=== PATIENT | male | born 1950 | race Caucasian/White ===

== ENCOUNTER 2018-02-19 12:22 | Outpatient (CLI) | payer MEDICARE, OTHER ==
--- NOTE | 2018-02-19 19:03 | MRI ---
BRAIN MRI WITH AND WITHOUT CONTRAST 02/19/17 Reference made to 11/28/10 MRI. CLINICAL HISTORY: Brain tumor, followup. FINDINGS: There is cavitary, postoperative encephalomalacia of the right frontal lobe. Since the prior exam the re has been interval development of prominent vasogenic edema of the left frontal lobe where there is underlying restricted diffusion which is related to an irregular shaped, partially enhancing left fr ontal lobe mass which does involve the adjacent corpus callosum and does traverse midline via the ant erior corpus callosum. Axial dimension of the solid component of the tumor measures 3.5 cm transverse x 3.1 cm AP. Craniocaudal extension of the necrotic and solid enhancing component measures 4.4 cm. T here is subtle thin curvilinear susceptibility seen about the periphery of the mass indicating a min imal component of hemosiderin staining. The periphery of the mass demonstrates a spiculated enhancin g pattern which does indicate extension of malignancy beyond the visualized confines of the enhancing portion of the mass. There is an additional separate focus of subtle enhancement within the body of the corpus callosum compatible with the spread of tumor. This is located at and to the left of midlin e. This spans an AP dimension of approximately 1.4 cm. Evidence of prior right frontoparietal craniot jak. There is abnormal opacification of the left frontal ethmoidal sinus and left maxillary sinus. Mi ld circumferential fluid signal of the sphenoid sinus is present. IMPRESSION: 1. Interval development of malignancy of the left frontal lobe which does involve the anterior c orpus callosum traversing midline. There is a separate focus of enhancement indicative of malignancy involving the body of the corpus callosum. 2. Mild hemosiderin staining within the periphery of the left frontal malignancy. 3. Postoperative cavitary encephalomalacia of the right frontal lobe. POS: SUN
== END 2018-02-19 12:23 | disposition home or self-care (01) ==
LOC: MRI 12:22
PROVIDERS: ATTEND Neurological Surgery
DX: C71.9 Malignant neoplasm of brain, unspecified (principal); Z98.890 Other specified postprocedural states; G93.89 Other specified disorders of brain
CPT/HCPCS: 70553; 82565

== ENCOUNTER 2018-03-01 07:34 | Inpatient (IN) | payer MEDICARE, OTHER ==
--- NOTE | 2018-03-01 04:23 | HP ---
CHIEF COMPLAINT: Brain tumor. HISTORY OF PRESENT ILLNESS: Mr. Ramirez is now 7 years out from resection of right frontal lobe GBM. 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 At first, there was a good response. Because of worsening on imaging from 11/2016 to 01/2017, he was taken off Avastin. He has been on this for 5 weeks and scan is planned for March to assess progress. Following this encounter, Mr. Ramirez is back in the office. He had had repeated scans and planned biopsy of tumor, noticed that the tumor was much larger than it was in January. We discussed surgery. The patient has been less active over time and less communicative according to his , otherwise he is a same person, has no motor or sensory issues. REVIEW OF SYSTEMS: A 10-point review of systems has been conducted and is otherwise negative than stated above in the HPI. PAST MEDICAL HISTORY: History of previous GMB, cardiovascular disease, atrial fibrillation. PAST SURGICAL HISTORY: Craniotomy in [address] Dunham, appendectomy, pacemaker insertion, heart ablation for atrial fibrillation. FAMILY HISTORY: The patient denies any drug or alcohol use. SOCIAL HISTORY: He is . ALLERGIES: The patient has no known drug allergies. PHYSICAL EXAMINATION: CONSTITUTIONAL: The patient is sitting comfortably in the office. He is alert and oriented. HEENT: Eyes are equal, round, reactive to light. Extraocular movements are intact. Hearing is intact. Moist mucous membranes. CARDIOVASCULAR: Regular rate and rhythm. PULMONARY: Regular work of breathing in room air. NEUROLOGIC: Cranial nerves are intact. Cerebellar exam: There is no truncal ataxia. Gait and station are normal. Motor exam: There is no drift. Sensory exam: There is no neglect. IMAGING: MRI, enhancing area is 4-5 times larger, at least then it was 5 weeks ago. There is a very concerning left frontal lobe is involved in the right side of original tumor site. ASSESSMENT: Malignant neoplasm of the frontal lobe. PLAN: Dr. Dunham has offered surgical resection this almost certainly tumor given the mass effect and a huge increase in size. We have discussed the indications, risks, benefits, alternatives, and expected results and surgery. The risks discussed included, but were not limited to bleeding, infection, brain damage, language dysfunction, cognitive decline, seizure, stroke, personality changes, paralysis, wheelchair or ventilator dependent, and cardiopulmonary complications of anesthesia including . The patient states he has understanding and is willing to move forward with surgery. CANDI
[2018-03-01] MEDS ORDERED: Dexamethasone 4 mg/ml Vial ONE ×2 (08:27→20:13)
[2018-03-01] MEDS ORDERED: CEFAZOLIN/Water 2 GM/20 ML SYRINGE ONE ×2 (08:27→19:48)
[2018-03-01 08:32] LABS: #Basophils 0.1 thou/uL (0.0-0.2); #Eosinphils 0.2 thou/uL (0.0-0.7); #Monocytes 0.9 thou/uL (0.11-0.59); #Neutrophils 5.1 thou/uL (1.40-6.50); %Basophils 0.9 % (0.0-1.0); %Lymphocytes 24.6 % (21.0-51.0); %Neutrophils 61.4 % (42.0-75.0); Hemoglobin 15.2 g/dL (14.0-18.0); Mean Corpuscular HGB CONC 34.8 g/dL (32.0-36.0); Mean Corpuscular Hemoglobin 32.9 pg (27.0-31.0); Mean Corpuscular Volume 94.6 fL (78.0-98.0); Platelet Count 228 thou/uL (130-400); RBC Distribution Width 14.1 % (11.5-14.5); Red Blood Cell (RBC) Count 4.63 mill/uL (4.70-6.10); White Blood Cell (WBC) Count 8.3 thou/uL (4.8-10.8)
[2018-03-01 08:39] LABS: INR-International Normal Ratio 1.1; PTT 23.8 SEC (22.9-36.1); Prothrombin Time 13.9 SEC (12.0-14.7)
[2018-03-01] MEDS ORDERED: Sodium Chloride 0.9% 20 ML ONE (09:31)
[2018-03-01] MEDS ORDERED: Lidocaine 0.5%/Epinephrine 1:200,000 50 ml Vial ONE (09:31)
[2018-03-01] MEDS ORDERED: Bacitracin Zinc Ointment 30 gm TUBE ONE (09:31)
[2018-03-01] MEDS ORDERED: Thrombin 5000 UNITS/5 ML VIAL ONE (09:31)
[2018-03-01] MEDS ORDERED: Fentanyl 100 MCG/2 ML VIAL ONE (10:13)
[2018-03-01] MEDS ORDERED: Ondansetron HCl/PF 4 MG/2 ML Vial IVP PRN ×2 (11:57→16:30)
[2018-03-01] MEDS ORDERED: niCARdipine 40MG In NaCl 40 MG/200 ML BAG IVPB SCH (12:00)
[2018-03-01] MEDS ORDERED: Rocuronium Bromide 50 MG/5 ML VIAL ONE (12:07)
[2018-03-01] MEDS ORDERED: niCARdipine HCl 50 MG in Sodium Chloride 0.9% 250 ML 230 ML IVPB SCH (12:15)
[2018-03-01] MEDS ORDERED: Ondansetron HCl/PF 4 MG/2 ML Vial ONE ×3 (14:32→18:57)
[2018-03-01] MEDS ORDERED: Esmolol 100 MG/10 ML VIAL ONE (14:55)
[2018-03-01] MEDS ORDERED: Glycopyrrolate 0.2 MG/ML 5 ML SYRINGE ONE (14:55)
[2018-03-01] MEDS ORDERED: Lidocaine 1% PF 5 ML VIAL ONE ×2 (14:55)
[2018-03-01] MEDS ORDERED: PROPOFOL 200 MG/20 ML VIAL ONE (14:55)
[2018-03-01] MEDS ORDERED: Labetalol 100 MG/20 ML MDV ONE (14:55)
[2018-03-01] MEDS ORDERED: PHENYLEPHRINE-NS 100 MCG/ML 10 ML SYRINGE ONE (14:55)
[2018-03-01] MEDS ORDERED: Cepastat Lozenges 1 LOZ PO PRN (15:49)
[2018-03-01] MEDS ORDERED: Mag-Al 1200 mg/1200 mg/30 ML UDCUP PO PRN (15:49)
[2018-03-01] MEDS ORDERED: Labetalol HCl 100 MG/20 ML VIAL SLOW IVP PRN (15:49)
[2018-03-01] MEDS ORDERED: Zolpidem Tartrate 5 MG TAB PO PRN (15:49)
[2018-03-01] MEDS ORDERED: Docusate 100 MG CAP PO PRN (15:49)
[2018-03-01] MEDS ORDERED: Fleet Enema 133 ML BOT PR PRN (15:49)
[2018-03-01] MEDS ORDERED: diphenhydrAMINE 50 MG CAP PO PRN (15:49)
[2018-03-01] MEDS ORDERED: HYDROcodone/Acetaminophen 7.5/325 mg Tablet PO PRN (15:49)
--- NOTE | 2018-03-01 15:53 | OP ---
DATE OF PROCEDURE: 03/01/2018 NEUROSURGERY OPERATIVE NOTE SURGEON: Tremaine Dunham M.D. TANK BUILDER AND ERECTOR: BALAJI Stevens. PREOPERATIVE INDICATION: Prevent neurological deterioration. PREOPERATIVE DIAGNOSIS: Recurrent glioblastoma multiforme, left frontal lobe. POSTOPERATIVE DIAGNOSIS: Recurrent glioblastoma multiforme, left frontal lobe. OPERATIVE PROCEDURE: Brainlab stereotactic-assisted left frontal craniotomy with tumor resection, op erating microscope. PREOPERATIVE MEDICATIONS: Ancef 2 g IV, Keppra 1000 mg IV. DRAIN NUMBER: Zero. DRAIN TYPE: None. PROCEDURE IN DETAIL: The patient was brought to the operating room. General endotracheal anesthesia was induced. The patient was positioned supine on the operating table and the head was turned sligh tly to the right. The head was immobilized with a [place] devon and the [place] attachment for e operating table. Using surface registration techniques, [employer] stereotactic software and preoper ative imaging, we registered the patient for sterotactic navigation. We validated our registration w ith surface landmarks and found the accuracy to be quite good. We marked out the patient's previous bifrontal incision and under the incision infused local anesthetic. The scalp was sterilely prepped and draped. We opened the left two-thirds of the previous incision and controlled bleeding with bipo lar and monopolar cautery. We folded the scalp flap forward and held it in place under fishhooks. U sing Brainlab navigation wand, we identified the surface presentation of the nearest point to the jose alejandro or. We planned a left frontal craniotomy. We placed a shannon hole at the frontal aguayo, [address] to the superior temporal line just beneath the temporalis muscle and another towards the midline of the frontal bone. We fashioned a rectangular shaped craniotomy and removed the bone flap out of the field after coaxing the dura from the undersurface of the bone with a [place] 3 dissector. The dura was intact with the craniotomy. We opened the dura in a cruciate fashion and brought the [employer] n avigation wand into the field. We chose an entry point in the far left frontal lobe, which would giv e us a direct access to the tumor through the least amount of normal adjacent brain tissue. We opene d the gyrus and went through and encountered tumor about 1 cm to 15 mm below the cortical surface. Lenora tyler operative microscope was brought into the field. Under microscopic magnification and using microsurgical techniques, we carefully developed a plane ar ound the tumor. First, we debulked the center and then we went superficially and found a gliotic citlali ne around the tumor as well as the vascular edges. We created this plane circumferentially anteriorl y, medially, laterally, posteriorly and finally on its inferior surface. The deep surface was intima tely associated with the ependyma of the frontal horn of the lateral ventricle. In multiple areas, w e left the ependymoma intact and in some areas it was opened. Over any opening in the ventricle, we left Gelfoam until resection was complete. At the completion of our resection, there is no further v ascular tissue suggestive of tumor. Our navigation wand suggested a volumetric resection. We laid a large piece of Surgicel over the ependyma. Hemostasis was excellent. We closed the dura in an inte rrupted fashion. We reapproximated the skull with titanium plates and screws. The scalp was closed in a vertical mattress fashion with a 2-0 nylon. The patient was removed from the [facility] and a sterile dressing was applied. This was a clean case and no contamination.
[2018-03-01] MEDS ORDERED: CEFAZOLIN/Water 2 GM/20 ML SYRINGE SLOW IVP SCH ×2 (16:00→17:00)
[2018-03-01] MEDS ORDERED: Morphine Sulfate 2 MG/ML SYRINGE SLOW IVP PRN (16:30)
[2018-03-01] MEDS ORDERED: Promethazine HCl 25 MG/ML VIAL SLOW IVP PRN (16:30)
[2018-03-01] MEDS ORDERED: HYDROmorphone 2 MG/ML VIAL SLOW IVP PRN (16:30)
[2018-03-01] MEDS ORDERED: Promethazine HCl 25 MG/ML VIAL IM PRN (16:30)
[2018-03-01] MEDS: CEFAZOLIN/Water 2 GM/20 ML SYRINGE SLOW IVP SCH (20:09)
[2018-03-01] MEDS: Dexamethasone 4 MG TAB PO SCH (20:22)
[2018-03-01] MEDS ORDERED: levETIRAcetam 500 MG TAB PO SCH (21:00)
[2018-03-01] MEDS: Sodium Chloride 0.9% 1,000 ML IV SCH (22:15)
[2018-03-01] MEDS: clonazePAM 0.5 MG TAB PO SCH (22:18)
[2018-03-01] MEDS: Ondansetron HCl/PF 4 MG/2 ML Vial IVP PRN (22:34)
--- NOTE | 2018-03-01 22:37 | EKG ---
Test Reason : PREOP Blood Pressure : / mmHG Vent. Rate : 066 BPM Atrial Rate : 066 BPM P-R Int : 162 ms QRS Dur : 092 ms QT Int : 302 ms P-R-T Axes : 010 -04 005 degrees QTc Int : 316 ms Sinus rhythm with Premature supraventricular complexes Low voltage QRS Nonspecific T wave abnormality Abnormal ECG No previous ECGs available Confirmed by Rosalina RANDALL ([id number]) on 03/01/2018 10:36:36 PM Referred By: MARILIN Confirmed By:Rosalina RANDALL
[2018-03-01] MEDS ORDERED: Promethazine HCl 12.5 MG in Sodium Chloride 0.9% 50 ML IVPB PRN (23:01)
[2018-03-01 23:09] VITALS: BMI 33.5
[2018-03-02] MEDS: Dexamethasone 4 MG TAB PO SCH ×4 (00:12→17:46)
[2018-03-02] MEDS: CEFAZOLIN/Water 2 GM/20 ML SYRINGE SLOW IVP SCH ×3 (03:57→20:56)
[2018-03-02] MEDS: Sodium Chloride 0.9% 1,000 ML IV SCH ×2 (05:00→20:08)
[2018-03-02] MEDS ORDERED: Lidocaine 1% (PF) 30 ML VIAL ONE (06:35)
[2018-03-02] MEDS: HYDROcodone/Acetaminophen 7.5/325 mg Tablet PO PRN (06:38)
[2018-03-02] MEDS: Ondansetron HCl/PF 4 MG/2 ML Vial IVP PRN (06:39)
--- NOTE | 2018-03-02 07:11 | PRG ---
DATE OF SERVICE: 03/02/2018 I saw Mr. Ramirez on rounds this morning in our ICU. No events reported overnight other than slow e mergence from anesthesia. Eventually he became more responsive, and answering questions and he remai ns that way now. I do not see a fever recorded overnight. Blood pressures have been in the 120s to 130s. This morning, Mr. Ramirez opens his eyes as I entered the room, he answers questions with one or two word answers. He is moving all 4 extremities well. He follows commands quite easily. He in teracts and he is aware of the events and his surroundings. His affect is slightly flatter than it u sually is. He says he is happy to be through surgery. I see some drainage on the bed that looks like a combination of irrigation/CSF and serosanguineous dr pretty. We reinforced the dressing, try to get this to stop. He may require a few more stitches to be placed or some running Prolene in between his vertical mattress sutures. If that is necessary, we can add that in the coming days. We told Mr. Ramirez this morning that the pathologist looked at his tissue samples quickly under the microscope and indicated that there were tumor cells and that this was not all radiation reaction. He realizes that recurrent glioblastoma is indicative of a poor prognosis, but he is keeping his spir its up and hopes that adjuvant therapy in combination with the surgery can give him some more time.
[2018-03-02] MEDS ORDERED: Lidocaine 1% (PF) 30 ML VIAL NERVE BLCK SCH (07:45)
[2018-03-02] MEDS ORDERED: Prevnar 13-Val Conj/PF 0.5 ML SYRINGE IM ONE (09:00)
[2018-03-02] MEDS ORDERED: LISDEXAMFETAMINE DIMESYLATE PO SCH (09:00)
--- NOTE | 2018-03-02 09:51 | CON ---
DATE OF CONSULTATION: 03/02/2018 This is 70 minutes of time, of that time greater than 50% was spent with the patient and/or on the [facility] unit in the hospital. CONSULTING PHYSICIAN: Dr. Dunham REASON FOR CONSULTATION: CCU management. HISTORY OF PRESENT ILLNESS: The patient is confused and he is unable to give accurate history. Ther efore, what I have is obtained is from speaking with nursing staff and from reviewing notes on the art. He is a 67-year-old male who underwent craniotomy yesterday for resection of a recurrent gliobl astoma in the frontal lobe. He was brought to the CCU afterwards for intense neuro monitoring. So f ar, he has done well, but is very confused. PAST MEDICAL HISTORY: 1. Previous glioblastoma 7 years ago. 2. Coronary artery disease. 3. Atrial fibrillation. PAST SURGICAL HISTORY: 1. Craniotomy 2010 2. Appendectomy. 3. Pacemaker placement. 4. Cardiac ablation for atrial fibrillation. SOCIAL HISTORY: He is , does not smoke, does not drink. ALLERGIES: None. FAMILY MEDICAL HISTORY: Unremarkable. MEDICATIONS PRIOR TO ADMISSION: 1. Clonazepam 1 mg nightly. 2. Turmeric 500 mg daily. 3. Vyvanse 100 mg daily. 4. Cardizem-CD 1 daily. 5. Vitamin B12 1000 mcg daily. REVIEW OF SYSTEMS: Unobtainable secondary to the patient's altered mental status. PHYSICAL EXAMINATION: VITAL SIGNS: Temperature 98.8, pulse 78, blood pressure 112/64, sat 95%. Intake for 24 hours 680, o utput 1080. HEENT: Unremarkable. NECK: Without adenopathy or JVD. LUNGS: Clear without wheezing or rhonchi. CARDIOVASCULAR: S1, S2 regular. ABDOMEN: Soft, nontender. EXTREMITIES: No clubbing, cyanosis, or edema. NEURO: No focal neuro deficits other than his disorientation. LABORATORY DATA: White blood cell count 8.3, hematocrit 43.8, platelet count 228. INR 1.1, glucose 154. ASSESSMENT: 1. Status post craniotomy for resection of frontal lobe glioblastoma multiforme. 2. Hypertension. 3. History of atrial fibrillation. PLAN: The patient is likely going to the floor later today. Probably needs to have his labs checked tomorrow. He is currently on steroid therapy and may require supplemental insulin if his blood suga rs remain elevated. He needs to continue on SCDs for DVT prophylaxis. Anticoagulation is contraindi cated.
[2018-03-02] MEDS: Cyanocobalamin (Vitamin B-12) 1,000 MCG TAB PO SCH (10:02)
--- NOTE | 2018-03-02 14:01 | PQF ---
Asked to create an answer to a medical billing and coding query about encephalopathy in this patient. Mr. Ramirez has the expected consequence of having his left frontal lobe operated after having a prior right frontal lobe operation. He is slow to respond, his cognitive processing time is slowed, and he is not engaged enough in conversation to spend the energy required to get to the correct answers. His level of function this morning on rounds was exactly what I expected after this operation. Although this might fall into the realm of encephalopathy, he, by definition, had that before since his right frontal lobe was permanently affected by tumor resection. That portion of his brain has been pathologically under-performing for 7 years. The new deficits fit entirely into the predicted outcome of the surgery, and, as such I do not consider them a new and different dx. TERAD
[2018-03-02] MEDS: clonazePAM 0.5 MG TAB PO SCH (20:56)
[2018-03-03] MEDS: Acetaminophen 325 MG TAB PO PRN ×3 (00:07→14:15)
[2018-03-03] MEDS: Dexamethasone 4 MG TAB PO SCH ×4 (00:07→22:41)
[2018-03-03] MEDS: Sodium Chloride 0.9% 1,000 ML IV SCH ×2 (00:09→20:19)
[2018-03-03] MEDS: CEFAZOLIN/Water 2 GM/20 ML SYRINGE SLOW IVP SCH ×3 (04:35→20:19)
[2018-03-03 05:35] LABS: Anion Gap 14 mmol/L (10-20); BUN (Urea Nitrogen) 19 mg/dL (8.4-25.7); Calc. Creatinine Clearance 121 mL/min (70-130); Calcium 8.2 mg/dL (7.8-10.44); Carbon Dioxide 20 mmol/L (23-31); Chloride 106 mmol/L (98-107); Estimated GFR-MDRD 89; Glucose 142 mg/dL (80-115); Potassium 4.1 mmol/L (3.5-5.1); Sodium 136 mmol/L (136-145)
[2018-03-03] MEDS: Cyanocobalamin (Vitamin B-12) 1,000 MCG TAB PO SCH (08:07)
--- NOTE | 2018-03-03 08:28 | PRG ---
DATE OF SERVICE: 03/03/2018 I have seen Mr. Ramirez in his hospital room. He is 2 days out from craniotomy. I am seeing him t pawan on the floor. There were no recorded fevers overnight. His heart rate and respiration rates ar e all within normal limits. He did have a low O2 saturation overnight and was on oxygen; however, th is morning, this is much improved and off of oxygen. The patient's blood pressures have stayed in th e 120s to 130s. When I saw the patient he was resting, but responds when I talked to him, moving his eyes, moving all 4 extremities. The patient is following commands. He is glad to be done with surgery. The incisio n is healing well. We added 2 sutures yesterday and that appears to have helped any of the fluid mario t was draining. The incision is well approximated and there is no drainage noted this morning. The patient has had surgery on both frontal lobes which will make this transition a little harder than no rmal. The patient will be a little more lethargic upon waking up which he has been progressing very well. Once he is safe to move around, is getting nourishment and using restroom on his own we can st art physical therapy and progress him to home.
[2018-03-03] MEDS ORDERED: Dexamethasone 4 MG TAB PO SCH (09:00)
[2018-03-03] MEDS ORDERED: traMADol HCl 50 MG TAB PO PRN ×2 (15:27→15:28)
[2018-03-03] MEDS: clonazePAM 0.5 MG TAB PO SCH (20:14)
[2018-03-04] MEDS: CEFAZOLIN/Water 2 GM/20 ML SYRINGE SLOW IVP SCH ×3 (04:01→20:21)
[2018-03-04] MEDS: Cyanocobalamin (Vitamin B-12) 1,000 MCG TAB PO SCH (09:02)
[2018-03-04] MEDS: Dexamethasone 4 MG TAB PO SCH ×2 (09:02→20:21)
[2018-03-04] MEDS: HYDROcodone/Acetaminophen 7.5/325 mg Tablet PO PRN (09:09)
[2018-03-04] MEDS ORDERED: Prevnar 13-Val Conj/PF 0.5 ML SYRINGE IM ONE (10:30)
--- NOTE | 2018-03-04 11:44 | ULT ---
BILATERAL LOWER EXTREMITY VENOUS DOPPLER: Date: 03-04-18 Provided Clinical History: Evidence for DVT. FINDINGS: Grayscale and color doppler sonography with spectral analysis was performed of the bilateral common f emoral, femoral, popliteal, posterior tibial, greater saphenous and profunda femoral veins demonstrat ing a normal sonographic appearance to each. IMPRESSION: No sonographic evidence for lower extremity deep venous thrombosis. POS: LENIN
--- NOTE | 2018-03-04 11:48 | PRG ---
DATE OF SERVICE: 03/04/2018 Mr. Ramirez is 3 days postop from a craniotomy. The patient has been stable overnight. No signs of fever. The patient is more awake and alert today than he has been. The patient knows where he is i n addition to date, time and place. The patient is moving all 4 extremities well. He has been worki ng with physical therapy to ambulate with his walker to the restroom. He states that yesterday, they went down the [place] and around the "block". Upon talking with some the nurses; however, patient is s till somewhat impulsive and it seems like the patient's may not be able to control/handle Mr. Ramona iglesias's if he were to go home at this time. Rehab is a good option to work on increasing his stabili ty with walking and his safety with transition in and out of bed and to the restroom ambulating in a safe environment. The patient's incision is healing very well. There is no drainage this morning. We will order a Doppler ultrasound to evaluate for any DVTs. This patient is 3 days postop. We will see if the patient is going to be a good candidate for rehab and hope that he gets placement soon. We will continue to follow the patient and based on when he gets placement.
[2018-03-04] MEDS: Sodium Chloride 0.9% 1,000 ML IV SCH (12:16)
[2018-03-04] MEDS: clonazePAM 0.5 MG TAB PO SCH (20:22)
[2018-03-05] MEDS: Sodium Chloride 0.9% 1,000 ML IV SCH ×2 (02:47→14:22)
[2018-03-05] MEDS: CEFAZOLIN/Water 2 GM/20 ML SYRINGE SLOW IVP SCH ×2 (04:10→12:15)
[2018-03-05] MEDS: Cyanocobalamin (Vitamin B-12) 1,000 MCG TAB PO SCH (08:35)
[2018-03-05] MEDS: Dexamethasone 4 MG TAB PO SCH (08:35)
[2018-03-05] MEDS: HYDROcodone/Acetaminophen 7.5/325 mg Tablet PO PRN (08:35)
[2018-03-05] MEDS ORDERED: levETIRAcetam 500 MG/100 ML PREMIX BAG ONE (08:42)
[2018-03-05 11:48] VITALS: BP 147/75; TEMP 97.4
--- NOTE | 2018-03-06 03:21 | PRG ---
DATE OF SERVICE: 03/05/2018 NEUROSURGICAL PROGRESS NOTE I saw Mr. Ramirez this morning in his hospital room. He was resting comfortably when I entered, but woke up and was alert and oriented. The patient denies any pain at this time and he is quite respon sive, moving all 4 extremities. The patient's incision has no drainage and it can remain open to the air. A venogram done on 03/04/2018 was negative. No sign of DVT. He also has no reported fevers t hroughout the night. His blood pressure was steady in the 130s. Vital signs have been stable throug h his hospital stay. The patient and his family is working along with social work to get him into a rehab placement today and patient will be discharged if a bed is found.
== END 2018-03-05 16:00 | DRG 27 ==
LOC: SURG A 07:34 → CCU 16:18 → SURG A 03-02 13:22
PROVIDERS: ADMIT Neurological Surgery; ATTEND Neurological Surgery
PROC: 00B70ZZ Excision of Cerebral Hemisphere, Open Approach (ICD-10-PCS; principal; 2018-03-01)
DX: C71.1 Malignant neoplasm of frontal lobe (principal); I25.10 Atherosclerotic heart disease of native coronary artery without angina pectoris; Z95.0 Presence of cardiac pacemaker; Z79.899 Other long term (current) drug therapy
CPT/HCPCS: 36415; 36416; 80048; 85025; 85610; 85730; 88307; 88331; 88334; 93005; 93010; 93970; A4216; C1713; G8978-GP-CL; G8979-GP-CJ; J1100; J1953; J2001; J2270; J2405; J2550; J2704; J3010; J3490; J7050; J8540